=== PATIENT | male | born 1985 | race Caucasian/White ===

== ENCOUNTER 2024-09-04 19:57 | Emergency (ER) | payer OTHER ==
[2024-09-04] MEDS ORDERED: Sodium Chloride 0.9% 1000 ML 1,000 ML ONE (20:09)
[2024-09-04] MEDS: Sodium Chloride 0.9% 1000 ML 1,000 ML IV STA (20:10)
[2024-09-04 20:11] VITALS: TEMP 100.5
[2024-09-04 20:31] LABS: Absolute Neutrophil Ct (ANC) 3.91 x10^3/uL (1.78-5.38); BASOPHIL % 0.3 % (0.2-1.2); Basophil (Absolute #) 0.02 x10^3/uL (0.01-0.08); Eosinophil % 0.7 % (0.8-7.0); Eosinophil (Absolute #) 0.04 x10^3/uL (0.04-0.54); Hematocrit 46.5 % (40.1-51.0); Hemoglobin 15.1 g/dL (13.7-17.5); IMMATURE GRAN # 0.03 x10^3u/L (0.001-0.031); IMMATURE GRAN % 0.5 % (0.001-0.429); Lymphocyte (Absolute #) 1.44 x10^3/uL (1.32-3.57); Lymphocytes % 23.8 % (21.8-53.1); Mean Cell Volume 87.1 fL (79.0-92.2); Mean Corpuscular Hemoglobin 28.3 pg (25.7-32.2); Mean Corpuscular Hgb Concent. 32.5 g/dL (32.3-36.5); Mean Platelet Volume 10.2 fL (9.4-12.4); Monocytes % 9.9 % (5.3-12.2); Neutrophil % 64.8 % (34.0-67.9); Platelet Count 211 x10^3/uL (163-337); Red Blood Count 5.34 x10^6/uL (4.63-6.08); Red Cell Distribution Width 11.8 % (11.6-14.4)
[2024-09-04 20:45] LABS: ALBUMIN 4.4 g/dL (3.5-5.0); ANION GAP 15.6 MEQ/L (5-15); BILIRUBIN,TOTAL 0.6 mg/dL (0.2-1.3); Calcium 9.1 mg/dL (8.4-10.2); Creatinine 1 1.43 mg/dL (0.66-1.25); EST GLOMERULAR FILTRATION RATE 64.3 ML/MIN; MAGNESIUM 1.6 mg/dL (1.6-2.3); Potassium 4.4 mmol/L (3.5-5.1); Total Protein 7.5 g/dL (6.3-8.2)
[2024-09-04] MEDS ORDERED: TYLENOL EXTRA STRENGTH 500 MG ONE (20:52)
[2024-09-04] MEDS: TYLENOL EXTRA STRENGTH 500 MG PO STA (20:53)
[2024-09-04 21:02] LABS: Group A Strep NOT DETECTED (NEGATIVE)
[2024-09-04 21:13] LABS: INFLUENZA A NEGATIVE (NEGATIVE); RESPIRATORY SYNCTIAL VIRUS NEGATIVE (NEGATIVE); SARS-CoV-2 Xpert Express NEGATIVE (NEGATIVE)
[2024-09-04 21:19] LABS: INFLUENZA B POSITIVE (NEGATIVE)
[2024-09-04] MEDS: Lactated Ringers 500 ML IV ONE (21:26)
--- NOTE | 2024-09-04 21:26 | ERPHSYRPT ---
- History of Present Illness Time Seen by Provider: 09/04/24 21:26 Source: patient Exam Limitations: no limitations Patient Subjective Stated Complaint: C/O SOB for the past few days with exertion. Reports a productive cough with yellow sputum as well. Triage Nursing Assessment: Patient ambulated back to ER. He is alert and oriented. Skin is hot to touch and moist. No SOB not at this time; 02 sats 95% on room air. Patient coughing when taking a deep to assess lung sounds. Lungs clear. Physician History: 39-year-old male presents to our ED for evaluation of shortness of breath fever and a productive cough. Patient believes he has pneumonia. Symptoms have been ongoing for 3 days. Patient admits to decreased oral intake. No nausea no vomiting no diarrhea no rash. Symptoms are progressive. Symptoms are moderate in intensity. No specific worsening or improving factors. Patient denies a history of the same. He voices no other complaints or concerns at this time. Portions of this note were created with voice recognition technology. There may be grammatical, spelling, punctuation or sound alike errors Timing/Duration: day(s) (3 days) Severity: moderate Modifying Factors: Improves With: nothing Associated Symptoms: denies symptoms Allergies/Adverse Reactions: No Known Drug Allergies Allergy (Verified 09/04/24 19:58) Home Medications: No Reportable Medications [No Reported Medications] 09/04/24 [History] Hx Tetanus, Diphtheria Vaccination/Date Given: Yes Hx Influenza Vaccination/Date Given: No Hx Pneumococcal Vaccination/Date Given: No Immunizations Up to Date: Yes Travel Risk - International Travel Have you traveled outside of the country in past 3 weeks: No - Emerging Infectious Disease Are you exhibiting symptoms associated with any current EIDs: Yes Symptoms: Cough: New Onset, Headaches/Body Aches/, Shortness of Breath, Other (Please Comment) Comment: SORETHROAT - Review of Systems Constitutional: No Symptoms, No Fever, No Chills Eyes: No Symptoms Ears, Nose, & Throat: No Symptoms Respiratory: No Symptoms, No Cough, No Dyspnea Cardiac: No Symptoms, No Chest Pain, No Edema, No Syncope Abdominal/Gastrointestinal: No Symptoms, No Abdominal Pain, No Nausea, No Vomiting, No Diarrhea Genitourinary Symptoms: No Symptoms, No Dysuria Musculoskeletal: No Symptoms, No Back Pain, No Neck Pain Skin: No Symptoms, No Rash Neurological: No Symptoms, No Dizziness, No Focal Weakness, No Sensory Changes Psychological: No Symptoms Endocrine: No Symptoms Hematologic/Lymphatic: No Symptoms Immunological/Allergic: No Symptoms All Other Systems: Reviewed and Negative - Past Medical History Pertinent Past Medical History: Yes Musculoskeletal History: Fractures - Past Surgical History Past Surgical History: No - Social History Smoking Status: Never smoker Exposure to second hand smoke: No Drug Use: none - Social Determinants of Health Will the patient participate in the screening: Declined to provide - Nursing Vital Signs Nursing Vital Signs: Initial Vital Signs Temperature 100.5 F 09/04/24 20:00 Pulse Rate 102 H 09/04/24 20:00 Respiratory Rate 26 H 09/04/24 20:00 Blood Pressure 133/96 09/04/24 20:00 O2 Sat by Pulse Oximetry 96 09/04/24 20:00 Pain Scale Pain Intensity 4 - Physical Exam General Appearance: no apparent distress, alert Eye Exam: PERRL/EOMI, eyes nml inspection Ears, Nose, Throat Exam: normal ENT inspection, pharynx normal, dry mucous membranes Neck Exam: normal inspection, non-tender, supple, full range of motion Respiratory Exam: normal breath sounds, lungs clear, airway intact, No respiratory distress Cardiovascular Exam: regular rate/rhythm, normal heart sounds, normal peripheral pulses Gastrointestinal/Abdomen Exam: soft, normal bowel sounds, No tenderness, No mass Back Exam: normal inspection, normal range of motion, No CVA tenderness, No vertebral tenderness Extremity Exam: normal inspection, normal range of motion, pelvis stable Neurologic Exam: alert, oriented x 3, cooperative, normal mood/affect, nml cerebellar function, nml station & gait, sensation nml, No motor deficits Skin Exam: normal color, warm, dry, No rash Lymphatic Exam: No adenopathy SpO2 Interpretation: normal SpO2: 94 O2 Delivery: Room Air - Course Nursing assessment & vital signs reviewed: Yes EKG Interpreted by Me: RATE (96), Sinus Rhythm, NORMAL AXIS, NORMAL INTERVALS - Radiology Exams Chest X-ray Interpretation: Teleradiologist Report (No acute findings) Ordered Tests: Active Orders 24 hr Category Date Time Status Full Stack Web Developer STAT Care 09/04/24 20:07 Active EKG-ER Only STAT Care 09/04/24 20:06 Active IV Insertion STAT Care 09/04/24 20:06 Active Pulse Oximetry (ED) STAT Care 09/04/24 20:06 Active CHEST 1 VIEW (PORTABLE) Stat Exams 09/04/24 20:06 Taken BLOOD CULTURE Stat Lab 09/04/24 20:19 Received CBC W DIFF Stat Lab 09/04/24 20:00 Completed CMP Stat Lab 09/04/24 20:00 Completed D-DIMER QUANTITATIVE Stat Lab 09/04/24 20:00 Completed Lactic Acid Stat Lab 09/04/24 20:23 Completed MAGNESIUM Stat Lab 09/04/24 20:00 Completed NT PRO BNPII Stat Lab 09/04/24 20:00 Completed TROPONIN Q4H Lab 09/04/24 20:00 Completed TROPONIN Q4H Lab 09/05/24 00:15 Ordered TROPONIN Q4H Lab 09/05/24 04:15 Ordered Medication Summary Generic Name Dose Route Start Last Admin Trade Name Freq PRN Reason Stop Dose Admin Lactated Ringer's 500 mls @ 500 mls/hr 09/04/24 21:14 09/04/24 21:26 Lactated Ringers IV 09/04/24 22:13 500 mls/hr .Q1H ONE Administration Discontinued Medications Generic Name Dose Route Start Last Admin Trade Name Freq PRN Reason Stop Dose Admin Acetaminophen 1,000 mg 09/04/24 20:52 09/04/24 20:53 Acetaminophen 500 Mg Tablet PO 09/04/24 20:53 1,000 mg STAT STA Administration Acetaminophen Confirm 09/04/24 20:52 Acetaminophen 500 Mg Tablet Administered 09/04/24 20:53 Dose 1,000 mg .ROUTE .STK-MED ONE Sodium Chloride 1,000 mls @ 999 mls/hr 09/04/24 20:06 09/04/24 21:13 Sodium Chloride 0.9% 1000 Ml IV 09/04/24 21:06 Infused .Q1H1M STA Infusion Sodium Chloride Confirm 09/04/24 20:09 Sodium Chloride 0.9% 1000 Ml Administered 09/04/24 20:10 Dose 1,000 mls @ ud .ROUTE .STK-MED ONE Lab/Rad Data: Laboratory Result Diagrams 09/04/24 20:00 09/04/24 20:00 Laboratory Results 09/04/24 09/04/24 09/04/24 Range/Units 20:23 20:23 20:00 WBC (4.23-9.07) x10^3/uL RBC (4.63-6.08) x10^6/uL Hgb (13.7-17.5) g/dL Hct (40.1-51.0) % MCV (79.0-92.2) fL MCH (25.7-32.2) pg MCHC (32.3-36.5) g/dL RDW (11.6-14.4) % Plt Count (163-337) x10^3/uL MPV (9.4-12.4) fL Gran % (34.0-67.9) % Immature Gran % (Auto) (0.001-0.429) % Nucleat RBC Rel Count (0.00-0.2) % Eos # (Auto) (0.04-0.54) x10^3/uL Immature Gran # (Auto) (0.001-0.031) x10^3u/L Absolute Lymphs (auto) (1.32-3.57) x10^3/uL Absolute Monos (auto) (0.30-0.82) x10^3/uL Absolute Nucleated RBC (0.00-0.012) x10^3u/L Lymphocytes % (21.8-53.1) % Monocytes % (5.3-12.2) % Eosinophils % (0.8-7.0) % Basophils % (0.2-1.2) % Absolute Granulocytes (1.78-5.38) x10^3/uL Basophils # (0.01-0.08) x10^3/uL D-Dimer (0.0-0.50) mg/L Sodium (135-145) mmol/L Potassium (3.5-5.1) mmol/L Chloride (98-107) mmol/L Carbon Dioxide (22-30) mmol/L Anion Gap (5-15) MEQ/L BUN (9-20) mg/dL Creatinine (0.66-1.25) mg/dL Estimated GFR ML/MIN Glucose (74-106) mg/dL Lactic Acid 2.1 H (0.4-2.0) Calcium (8.4-10.2) mg/dL Magnesium (1.6-2.3) mg/dL Total Bilirubin (0.2-1.3) mg/dL AST (17-59) U/L ALT (0-50) U/L Alkaline Phosphatase (38-126) U/L Troponin I (0.000-0.033) ng/mL NT-Pro-B Natriuret Pep < 20.0 (<300) pg/mL Serum Total Protein (6.3-8.2) g/dL Albumin (3.5-5.0) g/dL Influenza Type A Ag NEGATIVE (NEGATIVE) Influenza Type B Ag POSITIVE A (NEGATIVE) RSV (PCR) NEGATIVE (NEGATIVE) SARS-CoV-2 (PCR) NEGATIVE (NEGATIVE) Group A Strep Antibody NOT DETECTED (NEGATIVE) 09/04/24 09/04/24 09/04/24 Range/Units 20:00 20:00 20:00 WBC (4.23-9.07) x10^3/uL RBC (4.63-6.08) x10^6/uL Hgb (13.7-17.5) g/dL Hct (40.1-51.0) % MCV (79.0-92.2) fL MCH (25.7-32.2) pg MCHC (32.3-36.5) g/dL RDW (11.6-14.4) % Plt Count (163-337) x10^3/uL MPV (9.4-12.4) fL Gran % (34.0-67.9) % Immature Gran % (Auto) (0.001-0.429) % Nucleat RBC Rel Count (0.00-0.2) % Eos # (Auto) (0.04-0.54) x10^3/uL Immature Gran # (Auto) (0.001-0.031) x10^3u/L Absolute Lymphs (auto) (1.32-3.57) x10^3/uL Absolute Monos (auto) (0.30-0.82) x10^3/uL Absolute Nucleated RBC (0.00-0.012) x10^3u/L Lymphocytes % (21.8-53.1) % Monocytes % (5.3-12.2) % Eosinophils % (0.8-7.0) % Basophils % (0.2-1.2) % Absolute Granulocytes (1.78-5.38) x10^3/uL Basophils # (0.01-0.08) x10^3/uL D-Dimer 0.27 (0.0-0.50) mg/L Sodium 138 (135-145) mmol/L Potassium 4.4 (3.5-5.1) mmol/L Chloride 103 (98-107) mmol/L Carbon Dioxide 24 (22-30) mmol/L Anion Gap 15.6 H (5-15) MEQ/L BUN 10 (9-20) mg/dL Creatinine 1.43 H (0.66-1.25) mg/dL Estimated GFR 64.3 ML/MIN Glucose 142 H (74-106) mg/dL Lactic Acid (0.4-2.0) Calcium 9.1 (8.4-10.2) mg/dL Magnesium 1.6 (1.6-2.3) mg/dL Total Bilirubin 0.60 (0.2-1.3) mg/dL AST 31 (17-59) U/L ALT 46 (0-50) U/L Alkaline Phosphatase 52 (38-126) U/L Troponin I < 0.012 (0.000-0.033) ng/mL NT-Pro-B Natriuret Pep (<300) pg/mL Serum Total Protein 7.5 (6.3-8.2) g/dL Albumin 4.4 (3.5-5.0) g/dL Influenza Type A Ag (NEGATIVE) Influenza Type B Ag (NEGATIVE) RSV (PCR) (NEGATIVE) SARS-CoV-2 (PCR) (NEGATIVE) Group A Strep Antibody (NEGATIVE) 09/04/24 Range/Units 20:00 WBC 6.0 (4.23-9.07) x10^3/uL RBC 5.34 (4.63-6.08) x10^6/uL Hgb 15.1 (13.7-17.5) g/dL Hct 46.5 (40.1-51.0) % MCV 87.1 (79.0-92.2) fL MCH 28.3 (25.7-32.2) pg MCHC 32.5 (32.3-36.5) g/dL RDW 11.8 (11.6-14.4) % Plt Count 211 (163-337) x10^3/uL MPV 10.2 (9.4-12.4) fL Gran % 64.8 (34.0-67.9) % Immature Gran % (Auto) 0.5 H (0.001-0.429) % Nucleat RBC Rel Count 0.0 (0.00-0.2) % Eos # (Auto) 0.04 (0.04-0.54) x10^3/uL Immature Gran # (Auto) 0.03 (0.001-0.031) x10^3u/L Absolute Lymphs (auto) 1.44 (1.32-3.57) x10^3/uL Absolute Monos (auto) 0.60 (0.30-0.82) x10^3/uL Absolute Nucleated RBC 0.00 (0.00-0.012) x10^3u/L Lymphocytes % 23.8 (21.8-53.1) % Monocytes % 9.9 (5.3-12.2) % Eosinophils % 0.7 L (0.8-7.0) % Basophils % 0.3 (0.2-1.2) % Absolute Granulocytes 3.91 (1.78-5.38) x10^3/uL Basophils # 0.02 (0.01-0.08) x10^3/uL D-Dimer (0.0-0.50) mg/L Sodium (135-145) mmol/L Potassium (3.5-5.1) mmol/L Chloride (98-107) mmol/L Carbon Dioxide (22-30) mmol/L Anion Gap (5-15) MEQ/L BUN (9-20) mg/dL Creatinine (0.66-1.25) mg/dL Estimated GFR ML/MIN Glucose (74-106) mg/dL Lactic Acid (0.4-2.0) Calcium (8.4-10.2) mg/dL Magnesium (1.6-2.3) mg/dL Total Bilirubin (0.2-1.3) mg/dL AST (17-59) U/L ALT (0-50) U/L Alkaline Phosphatase (38-126) U/L Troponin I (0.000-0.033) ng/mL NT-Pro-B Natriuret Pep (<300) pg/mL Serum Total Protein (6.3-8.2) g/dL Albumin (3.5-5.0) g/dL Influenza Type A Ag (NEGATIVE) Influenza Type B Ag (NEGATIVE) RSV (PCR) (NEGATIVE) SARS-CoV-2 (PCR) (NEGATIVE) Group A Strep Antibody (NEGATIVE) - Progress Progress: improved Progress Note: 39-year-old male presents to emergency department for evaluation of a fever, generalized malaise body aches congestion decreased p.o. x 3 days. Physical exam shows dry oral mucous membranes. Laboratory workup significant for influenza B. Serum creatinine is 1.43. Patient had an elevated serum creatin ine back in December 2023. However he has not followed up with his family doctor or nephrology to further evaluate/monitor this creatinine. Patient advised to follow-up with his primary care doctor or [facility] for further evaluation. Patient hydrated with IV fluids. Chest x-ray negative for acute findings. No pneumonia. Patient reassessed. He feels much better patient states he is ready for discharge. He voices no other complaints or concerns at this time. Patient agrees to follow-up with his primary care doctor and/or a [facility] within 48 hours for reevaluation. Portions of this note were created with voice recognition technology. There may be grammatical, spelling, punctuation or sound alike errors Complexity problem addressed is moderate acute complicated no critical care time. Complex of data reviewed and analyzed is moderate. Test ordered test reviewed results analyzed and correlated clinically with history and physical exam. Risk of complication and or risk of morbidity/mortality of patient management is low. Vital stable. Time spent to discharge patient approximately 20 minutes. Plan of care established for shared decision making. No social determinants of health present to impede follow-up. Portions of this note were created with voice recognition technology. There may be grammatical, spelling, punctuation or sound alike errors 09/04/24 21:39 Counseled pt/family regarding: lab results, diagnosis, need for follow-up, rad results - Departure Departure Disposition: Home Clinical Impression: Influenza B, Elevated serum creatinine, Fever, Dehydration Condition: Stable Critical Care Time: No Referrals: VIVIANE PEREZ, LABOR RELATIONS SUPERVISOR [Primary Care Provider] - Follow up/PCP as directed Instructions: Flu, Adult ED, Serum creatinine test Additional Instructions: Discharge/Care Plan YASMINE NOVA was seen on 09/04/24 in the Emergency Room. The patient was counseled regarding Diagnosis,Lab results, Imaging studies, need for follow up and when to return to the Emergency Room. Prescriptions given: Discharge Note I have spoken with the patient and/or caregivers. I have explained the patient's condition, diagnosis and treatment plan based on the information available to me at this time. I have answered the patient's and/or caregiver's questions and addressed any concerns. The patient and/or caregivers have as good understanding of the patient's diagnosis, condition and treatment plan as can be expected at this point. The vital signs have been stable. The patient's condition is stable and appropriate for discharge from the emergency department. The patient will pursue further outpatient evaluation with the primary care physician or other designated or consulting physician as outlined in the disc harge instructions. The patient and/or caregivers are agreeable to this plan of care and follow-up instructions have been explained in detail. The patient and/or caregivers have received these instruction. The patient/and or caregivers are aware that any significant change in condition or worsening of symptoms should prompt an immediate return to this or the closest emergency department or call 911.
[2024-09-04 22:05] VITALS: PULSE 90
[2024-09-04 22:35] VITALS: BP 108/76; RESP 16; O2SAT 96
--- NOTE | 2024-09-05 08:37 | XRAY ---
Indication: Short of breath. Productive cough. Comparison: October 25, 2011 Portable apical lordotic chest again demonstrates normal heart, lungs, and bony thorax.
== END 2024-09-04 22:35 | disposition home or self-care (01) ==
LOC: ED 19:57
DX: J10.1 Influenza due to other identified influenza virus with other respiratory manifestations (principal); R79.89 Other specified abnormal findings of blood chemistry; R50.9 Fever, unspecified; E86.0 Dehydration; R06.02 Shortness of breath; R05.1 Acute cough
CPT/HCPCS: 0241U; 36000; 36415; 71045; 80053; 83605; 83735; 83880; 84484; 85025; 85379; 87040; 87651; 93005; 93041; 94760; 96360; 96361; 99284; A9270-GY